=== PATIENT | male | born 1955 | race Caucasian/White ===

== ENCOUNTER 2022-11-03 15:15 | Outpatient (RCR) | payer BC, SELFPAY | END 2022-11-04 12:41 | disposition home or self-care (01) | PROVIDERS: PCP Family Medicine; Visit Provider Physician Assistant Surgical | DX: M54.2 Cervicalgia (principal); Z51.89 Encounter for other specified aftercare | CPT/HCPCS: 97012; 97110; 97162 ==

== ENCOUNTER 2023-08-30 07:04 | Outpatient (CLI) | payer MEDICARE, BC, SELFPAY ==
--- NOTE | 2023-08-30 07:15 | MR_ITS ---
[facility] [address] [facility] [address] Phone:?[phone] Fax:?[phone] Referring Physician Information: David Henriquez M.D. [address] [place] [id number] Phone:?[phone] Fax:?[phone] Patient:Alhaji Edwards D.O.B:?1955 Sex:?Female Phone:?[phone] [facility] MRN:?[id number] Exam Date:?08/30/2023 EXAM: MRI of the RIGHT KNEE, without contrast CLINICAL INFORMATION: Female, 68 years old, with knee pain. INDICATION: Evaluate for medial meniscal tear PRIOR SURGERY: None reported. PLAIN FILMS: Radiographs 08/09/2023. COMPARISONS: No prior MRIs available. TECHNICAL INFORMATION: Using a 1.5T MR scanner and a localizing surface coil: sagittals: PD, PDFS coronals: PD, T2FS axials: PD, PDFS SEDATION: None CONTRAST: None FINDINGS: Knee joint: Effusion: Small size right knee effusion. Popliteal cyst: None. Loose bodies: Along the anterior joint line, there is a cluster of osseous bodies, approximately 4 in number, which measures 1.5 x 1.2 x 2.4 cm in sum. Subcutaneous and extra-articular soft tissues: Moderate prepatellar subcutaneous soft tissue edema and skin thickening. Region of peripheral low signal in the subcutaneous tissues measuring approximately 5.0 x 0.5 x 2.6 cm (axial series 3 image 18, and sagittal series 6 image 15). Ligaments: ACL: The ACL is thickened and somewhat heterogeneous in appearance, without transverse fiber disruption. PCL: Intact PCL, without acute or chronic injury. MCL: Intact MCL superficial and deep layers, without injury. LCL: Intact LCL, without injury. Posterolateral corner: No posterolateral corner soft tissue injury. Popliteus, biceps femoris, iliotibial band, popliteofibular ligament and lateral gastrocnemius are intact. Posteromedial corner: No posteromedial corner soft tissue injury. Semimembranosus, pes anserine tendons and posterior oblique ligament are without injury, tendinopathy or bursitis. Extensor mechanism: Patellar tendon: Intact, without tendinopathy. Mild patella jonas. Quadriceps tendon: Intact, without tendinopathy. Retinacula: Medial and lateral retinacula are intact. Fat pads: Unremarkable infrapatellar Hoffa's, quadriceps and prefemoral fat pads. Medial compartment: Medial meniscus: Medial meniscus is abnormal in appearance. There is horizontal tearing involving the apical free edge from the level of the posterior body through the posterior horn over a length of approximately 2.3 cm (sagittal series 6 image 25, and coronal series 7 image 21). No significant peripheral meniscal extrusion. The posterior root of the meniscus is intact. Medial femoral condyle: Broad-based grade 2 chondral thinning of the medial femoral condyle articular cartilage with region of grade III/IV thinning centrally measuring approximately 1.0 x 2.5 cm. Medial tibial plateau: Grade 3 chondral thinning of the medial tibial plateau anteriorly measuring approximately 7 x 9 mm with mild underlying cystic change and marrow edema. Lateral compartment: Lateral meniscus: Shallow horizontal undersurface tearing along the posterior horn of the lateral meniscus measuring approximately 7 mm in length (sagittal series 5 image 11). Lateral femoral condyle: No chondromalacia or osteochondral abnormality. Lateral tibial plateau: Chondromalacia with heterogeneity and grade II/III thinning of the central lateral tibial plateau measuring approximately 1.7 x 1.2 cm. Patellofemoral joint: Patella: Grade III/IV chondromalacia of the central median ridge of the patella measuring approximately 1.6 cm in craniocaudal dimension with mild underlying cystic change. Additional small region of grade III/IV chondromalacia of the far inferior lateral patellar facet with. Trochlea: Grade 2 chondral thinning of the peripheral lateral and medial trochlea. Proximal tibiofibular joint: Unremarkable, without evidence of ligament sprain injury, joint effusion or adjacent marrow edema. Bones: No stress/occult fractures or other marrow edema/pathology. IMPRESSION: 1. Horizontal tearing involving the apical free edge of the posterior body and posterior horn of the medial meniscus. The posterior root is intact. 2. Short segment shallow undersurface tearing along the posterior horn of the lateral meniscus. 3. Tricompartmental chondromalacia as described above with regions of full- thickness and near full-thickness chondral loss of the medial femoral condyle and patella. 4. Suspected residua of chronic incomplete sprain injury of the ACL. No acute cruciate or collateral ligament sprain/tear. 5. Mild patella jonas. 6. Soft tissue thickening involving the prepatellar subcutaneous tissues, possibly reflecting residua of prepatellar bursitis. 7. Small sized knee joint effusion. Osseous bodies along the anterior joint line measuring up to 1.5 x 1.2 x 2.4 cm in sum. [facility] Electronically signed on 08/30/2023 5:35:00 PM by Sharon Camara M.D.
== END 2023-08-30 07:05 | disposition home or self-care (01) ==
PROVIDERS: PCP Family Medicine; Visit Provider Orthopaedic Surgery
DX: M25.561 Pain in right knee (principal); S83.241A Other tear of medial meniscus, current injury, right knee, initial encounter; S83.281A Other tear of lateral meniscus, current injury, right knee, initial encounter; M22.41 Chondromalacia patellae, right knee; S83.511A Sprain of anterior cruciate ligament of right knee, initial encounter; M70.41 Prepatellar bursitis, right knee; M25.461 Effusion, right knee
CPT/HCPCS: 73721

== ENCOUNTER 2025-05-14 18:34 | Outpatient (CLI) | payer MEDICARE, BC, SELFPAY ==
--- NOTE | 2025-05-14 19:00 | MR_ITS ---
[address] [address] Phone:?[phone] Fax:?[phone] Referring Physician Information: David Henriqeuz M.D. [id number] [facility] [address] Phone:?[phone] Fax:?[phone] Patient:Alhaji Edwards D.O.B:?1955 Sex:?Male Phone:?[phone] [facility] MRN:?[id number] Exam Date:?05/14/2025 EXAM: MRI of the RIGHT KNEE without contrast CLINICAL: Right knee arthritis. Evaluate for medial meniscal tear. COMPARISONS: MRI 08/30/2023. X-rays 05/07/2025. TECHNICAL: Multiplanar multisequence MRI of the right knee was obtained. SEDATION: None. CONTRAST: None. FINDINGS: Ligaments: ACL: Intact and unremarkable. PCL: Intact and unremarkable. MCL: Intact and unremarkable. LCL: Intact and unremarkable. Posterolateral corner: The popliteus tendon, distal biceps femoris tendon, distal iliotibial band, and the popliteofibular ligament appear intact. Posteromedial corner: Semimembranosus, pes anserine tendons and posterior oblique ligament appear intact. Extensor mechanism: Patellar tendon: Intact, without tendinopathy. Quadriceps tendon: Intact, without tendinopathy. Retinacula: Medial and lateral retinacula are intact. Fat pads: Unremarkable infrapatellar Hoffa's, quadriceps and prefemoral fat pads. Patellofemoral joint: Patella: Chondral loss involving the patella appears similar to prior examination with mild subchondral marrow edema/cystic change. Trochlea: Focal chondral fissure involving the central trochlea on axial series 4 image 16. Trochlear cartilage otherwise appears maintained. Medial compartment: Medial meniscus: Tearing of the posterior horn extending into the body segment is similar to prior examination. No significant meniscal displacement. Medial cartilage: Chondral loss involving the medial femoral condyle and anterior medial tibial plateau is similar to prior examination with mild subchondral marrow edema involving the anterior medial tibial plateau. Lateral compartment: Lateral meniscus: Tearing of the posterior horn lateral meniscus is similar to prior examination. No new meniscal tear and no meniscal displacement. Lateral cartilage: Chondromalacia involving the lateral tibial plateau is similar to prior examination. Lateral femoral condyle cartilage is maintained. Knee joint: Effusion: Physiologic right knee effusion. Intra-articular bodies:?Adjacent intra-articular bodies are present along the anterior intercondylar notch similar to prior exam. Popliteal cyst: None. Bones: No suspicious bone marrow signal alteration or fracture line. IMPRESSION: 1. Tearing of the medial and lateral menisci similar to prior examination. 2. 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 3. Intra-articular bodies along the anterior intercondylar notch similar to prior exam. 4. No new ligamentous injury or fracture. [facility] Electronically signed on 05/15/2025 9:09:00 AM by Ramón Morris D.O.
== END 2025-05-14 18:35 | disposition home or self-care (01) ==
LOC: MRI 18:34
PROVIDERS: PCP Family Medicine; Visit Provider Orthopaedic Surgery
DX: M25.561 Pain in right knee (principal); S83.241A Other tear of medial meniscus, current injury, right knee, initial encounter; M17.11 Unilateral primary osteoarthritis, right knee
CPT/HCPCS: 73721